=== PATIENT | male | born 1965 | race African-American/Black ===

== ENCOUNTER 2020-09-05 14:06 | Emergency (ER) | payer BC, OTHER ==
[~2020-09-05] VITALS: Ht 170.2 cm; Wt 63.5 kg
[2020-09-05 14:15] VITALS: BP 125/89
[2020-09-05] MEDS ORDERED: GELATIN SPONGE,ABSORBABLE 1 SPONGE SPONGE TP ONE (14:23)
[2020-09-05] MEDS ORDERED: CELLULOSE,OXIDIZED 1 PKT EACH MC ONE (14:30)
== END 2020-09-05 14:38 | disposition home or self-care (01) ==
LOC: ER 14:13
DX: S61.012A Laceration without foreign body of left thumb without damage to nail, initial encounter (principal); I10 Essential (primary) hypertension; E78.00 Pure hypercholesterolemia, unspecified; Z60.2 Problems related to living alone; W26.8XXA Contact with other sharp object(s), not elsewhere classified, initial encounter; Y93.89 Activity, other specified; Y92.89 Other specified places as the place of occurrence of the external cause; Y99.8 Other external cause status